=== PATIENT | female | born 1985 | race Two or more races ===

== ENCOUNTER 2020-01-23 07:11 | Outpatient (CLI) | payer OTHER | END 2020-01-23 07:21 | disposition home or self-care (01) | LOC: LAB 07:11 | DX: N39.0 Urinary tract infection, site not specified (principal); E88.89 Other specified metabolic disorders; E78.49 Other hyperlipidemia; E07.89 Other specified disorders of thyroid; E04.1 Nontoxic single thyroid nodule ==

== ENCOUNTER 2020-02-25 08:00 | Inpatient (IN) | payer OTHER ==
[~2020-02-25] VITALS: Ht 167.6 cm; Wt 99.1 kg
[2020-02-25] MEDS ORDERED: EFFEXOR XR75 MG PO (11:23)
[2020-03-05] MEDS ORDERED: KETO10TA2 PO (06:47)
[2020-03-05] MEDS ORDERED: OXYC1TAB9 PO (06:47)
== END 2020-03-05 11:14 | disposition home or self-care (01) | DRG 747 ==
LOC: O/R 03-03 06:25 → SURH 03-03 07:00 → OB/GYN 03-03 09:56
PROVIDERS: ADMIT Obstetrics & Gynecology Maternal & Fetal Medicine; ATTEND Obstetrics & Gynecology Maternal & Fetal Medicine
PROC: 0UVC7ZZ Restriction of Cervix, Via Natural or Artificial Opening (ICD-10-PCS; principal; 2020-03-03 07:00)
DX: N88.3 Incompetence of cervix uteri (principal)

== ENCOUNTER 2021-06-17 07:54 | Outpatient (CLI) | payer OTHER ==
[~2021-06-17 07:54] MED LIST: EFFEXOR XR75 MG PO; KETO10TA2 PO; OXYC1TAB9 PO
== END 2021-06-17 11:26 | disposition home or self-care (01) ==
LOC: NST 07:54
PROVIDERS: ATTEND Obstetrics & Gynecology Maternal & Fetal Medicine
DX: Z34.82 Encounter for supervision of other normal pregnancy, second trimester (principal)

== ENCOUNTER 2021-07-15 08:51 | Outpatient (CLI) | payer OTHER | END 2021-07-15 09:58 | disposition home or self-care (01) | LOC: NST 08:51 | PROVIDERS: ATTEND Obstetrics & Gynecology Maternal & Fetal Medicine | DX: Z34.83 Encounter for supervision of other normal pregnancy, third trimester (principal) ==

== ENCOUNTER 2021-08-25 10:15 | Inpatient (IN) | payer OTHER ==
[~2021-08-25] VITALS: Ht 167.6 cm; Wt 120.7 kg
[2021-08-25] MEDS ORDERED: CHILDREN'S ASPI81 MG PO (11:23)
[2021-08-25] MEDS ORDERED: OBTREX DHA COM1 EACH PO (11:23)
[2021-09-03] MEDS ORDERED: OXYC1TAB9 PO (09:37)
[2021-09-03] MEDS ORDERED: KETO10TA2 PO (09:37)
== END 2021-09-03 12:11 | disposition home or self-care (01) | DRG 788 ==
LOC: OB/GYN 08-31 07:06 → O/R 08-31 07:06 → OB/GYN 08-31 10:15 → SURG-SUITE 08-31 12:39 → OB/GYN 08-31 12:59
PROVIDERS: ADMIT Obstetrics & Gynecology Maternal & Fetal Medicine; ATTEND Obstetrics & Gynecology Maternal & Fetal Medicine
PROC: 0UB90ZZ Excision of Uterus, Open Approach (ICD-10-PCS; 2021-08-31)
PROC: 4A1HXCZ Monitoring of Products of Conception, Cardiac Rate, External Approach (ICD-10-PCS; 2021-08-31)
PROC: 10D00Z1 Extraction of Products of Conception, Low, Open Approach (ICD-10-PCS; principal; 2021-08-31 11:00)
DX: O34.33 Maternal care for cervical incompetence, third trimester (principal); O34.13 Maternal care for benign tumor of corpus uteri, third trimester; Z20.822 Contact with and (suspected) exposure to COVID-19; D25.2 Subserosal leiomyoma of uterus; Z3A.39 39 weeks gestation of pregnancy; Z37.0 Single live birth

== ENCOUNTER 2021-09-06 15:12 | Emergency (ER) | payer OTHER ==
[~2021-09-06] VITALS: Ht 167.6 cm; Wt 120.7 kg
[~2021-09-06 15:12] MED LIST changes: +CHILDREN'S ASPI81 MG PO; +OBTREX DHA COM1 EACH PO
[2021-09-06] MEDS ORDERED: MACRODANTIN100 M1 PO (19:31)
[2021-09-06] MEDS ORDERED: LASIX20 MG PO (19:31)
== END 2021-09-06 19:47 | disposition home or self-care (01) ==
LOC: ER 15:12
DX: R51.9 Headache, unspecified (principal)

== ENCOUNTER 2022-03-13 08:28 | Outpatient (CLI) | payer OTHER ==
[~2022-03-13 08:28] MED LIST changes: +LASIX20 MG PO; +MACRODANTIN100 M1 PO
== END 2022-03-13 08:38 | disposition home or self-care (01) ==
LOC: PPH VACUNA 08:28
PROVIDERS: ATTEND Emergency Medicine Pediatric Emergency Medicine
DX: Z23 Encounter for immunization (principal)

== ENCOUNTER 2022-08-15 22:20 | Emergency (ER) | payer OTHER ==
[~2022-08-15] VITALS: Ht 167.6 cm; Wt 117.0 kg
[2022-08-16] MEDS ORDERED: INTESTINEX680 M1 PO (03:50)
[2022-08-16] MEDS ORDERED: ONDANSETRON ODT4 MG PO (03:50)
[2022-08-16] MEDS ORDERED: LEVSIN/SL0.125 MG SL (03:50)
== END 2022-08-16 04:10 ==
LOC: ER 22:20
DX: A05.9 Bacterial foodborne intoxication, unspecified (principal)

== ENCOUNTER 2024-03-01 11:36 | Outpatient (CLI) | payer OTHER ==
[~2024-03-01 11:36] MED LIST changes: +INTESTINEX680 M1 PO; +LEVSIN/SL0.125 MG SL; +ONDANSETRON ODT4 MG PO
[2024-03-01 12:53] LABS: ABG PO2 98.6 mmHg (80-100)
[2024-03-01 12:54] LABS: ABG pCO2 34.3 mmHg (35-45); BASE EXCESS -1.4 mmol/l; BICARBONATE 22.2 mmol/l (23-25); SaO2 97.8 %; Tco2 23.3 mmol/l; allen test SATISFACTORY; o2 21 %; puncture site RADIAL LEFT
== END 2024-03-01 11:46 | disposition home or self-care (01) ==
LOC: LAB 11:36
DX: R05.1 Acute cough (principal)